=== PATIENT | male | born 1985 | race Caucasian/White ===

== ENCOUNTER 2022-11-23 23:24 | Emergency (ER) | payer BC, SELFPAY ==
[2022-11-23 23:27] VITALS: BP 135/81; PULSE 80; RESP 16; TEMP 36.9; O2SAT 100; BMI 30.6
--- NOTE | 2022-11-23 23:40 | ED.EAR1 ---
HPI - Ear Problem General Chief complaint: Ear Stated complaint: bug in L ear Time Seen by Provider: 11/23/22 23:40 History of Present Illness HPI Narrative: This 37-year-old male presents for evaluation of a foreign body/insect in his left ear. The patient was sitting outside with a light near him and an insect flew into his left ear. He can feel it moving in his left ear. His tried to remove it with tweezers but was unable to get it. He has been hitting the side of his head and it does not come out.No additional injuries or complaints. Related Data Allergies Allergy/AdvReac Type Severity Reaction Status Date / Time No Known Drug Allergies Allergy Verified 11/23/22 23:30 Review of Systems ROS Status of ROS 10 or more systems reviewed and unremarkable except as noted in history and below PFSH PFS Social History Smoking status: Never smoker Exam Narrative Exam Narrative: Nurses note and vital signs reviewed and patient is not hypoxic. General: The patient appears well but anxious due to a foreign body in his left ear Skin: Warm, dry, no pallor noted. There is no rash noted. Head: Normocephalic, atraumatic Eye: Normal conjunctiva, no drainage, EOMI. PERRL HEENT: There is a visible insect in the left external ear canal Neurological: A&O x4, normal speech Psychiatric: Cooperative Constitutional Vital Signs, click to edit/add: Last Vital Signs Temp 98.4 F 11/23/22 23:27 Pulse 80 11/23/22 23:27 Resp 16 11/23/22 23:27 BP 135/81 H 11/23/22 23:27 Pulse Ox 100 11/23/22 23:27 Course Vital Signs Vital signs: Vital Signs Temperature 98.4 F 11/23/22 23:27 Pulse Rate 80 11/23/22 23:27 Respiratory Rate 16 11/23/22 23:27 Blood Pressure 135/81 H 11/23/22 23:27 Pulse Oximetry 100 11/23/22 23:27 Temperature 98.4 F 11/23/22 23:27 Pulse Rate 80 11/23/22 23:27 Respiratory Rate 16 11/23/22 23:27 Blood Pressure 135/81 H 11/23/22 23:27 Pulse Oximetry 100 11/23/22 23:27 Medical Decision Making MDM Narrative Medical decision making narrative: Procedure note: Foreign body removal left ear. A suction catheter was used to remove the Moth that was in the left ear, The ear was reevaluated. There is a small area of excoriation on the medial aspect of the external ear canal. There is no tympanic membrane perforation. Small to moderate amount of cerumen is noted in the external ear canal This 37-year-old male presents for evaluation of a foreign body/insect in his left ear canal. I removed it in toto with suction. There is an excoriated area in the external ear canal but no tympanic membrane perforation. Cortisporin otic was ordered to treat the excoriated area in the ear canal and then an otitis externa. This will be dispensed to him to use 3-4 times a day for the next 3-4 days. Discharge Plan Discharge Chief Complaint: Ear Clinical Impression: Foreign body of ear, left Patient Disposition: Home, Self-Care Time of Disposition Decision: 23:41 Condition: Good Additional Instructions: Use two to 3 drops of the antibiotic suspension into the left ear 3-4 times a day for the next 3-4 days. Return to emergency department for ear pain, drainage or any concerns. Stand Alone Forms: Portal Instructions
--- NOTE | 2022-11-23 23:42 | PC.NURSE ---
Pt has bug in left ear, pt's attempted to get out at home but unable to.
[2022-11-23] MEDS: NEOMYCIN/POLYMYXIN B/HYDROCORTISONE OTIC SOLUTION 200 DROP/10 ML BOTTLE OT (23:52)
== END 2022-11-23 23:54 | disposition home or self-care (01) ==
PROVIDERS: Emergency Provider Emergency Medicine; PCP Internal Medicine
DX: T16.2XXA Foreign body in left ear, initial encounter (principal)
CPT/HCPCS: 69200; 99282

== ENCOUNTER 2023-02-28 10:49 | Outpatient (OUT) | payer BC, SELFPAY ==
--- NOTE | 2023-02-28 10:52 | XR_ITS ---
The [address] [address] Patient Name: IAN YEPEZ MRN: [id number] date: 1985 Sex: M Assigned Patient Location: RAD Current Patient Location: RAD Accession/Order Number: [id number] Exam Date: 02/28/2023 11:00 Report Date: 02/28/2023 14:29 At the request of: KELLY WESLEY Procedure: XR knee RT 4V EXAM: XR knee RT 4V HISTORY: Acute Pain M25.561 COMPARISON: There is no appropriate prior study for comparison. The alignment is anatomical. There is no acute fracture or dislocation. The interarticular joint spaces are preserved. Mild fluid within the suprapatellar bursa. No other significant soft tissue abnormality is noted. XR/XR knee RT 4V IMPRESSION: Mild fluid within the right suprapatellar bursa. Otherwise, no significant abnormality current x-ray of the right knee. Electronically authenticated by: YASMANI DUARTE Date: 02/28/2023 14:29
== END 2023-02-28 10:50 | disposition home or self-care (01) ==
LOC: RAD 10:49
PROVIDERS: PCP Internal Medicine; Visit Provider Orthopaedic Surgery
DX: M25.561 Pain in right knee (principal); M25.461 Effusion, right knee
CPT/HCPCS: 73564

== ENCOUNTER 2023-03-02 06:39 | Outpatient (OUT) | payer BC, SELFPAY ==
--- NOTE | 2023-03-02 06:49 | MR_ITS ---
[address] [address] Patient Name: IAN YEPEZ MRN: [id number] date: 1985 Sex: M Assigned Patient Location: MRI Current Patient Location: MRI Accession/Order Number: [id number] Exam Date: 03/02/2023 06:52 Report Date: 03/02/2023 07:36 At the request of: KELLY WESLEY Procedure: MR knee RT wo con EXAM: MR knee RT wo con HISTORY: acute pain of right knee COMPARISON: Right knee x-rays 02/28/2023. TECHNIQUE: Multi planar, multisequence MR imaging of the right knee without contrast. Findings: Menisci: The menisci are intact. Cruciate ligaments: The anterior and posterior cruciate ligaments are intact. Collateral ligaments: The medial collateral ligament and lateral collateral complex are intact. Patellofemoral: The extensor mechanism is intact. Small joint effusion. Grade 1 patellofemoral compartment chondromalacia. No full-thickness cartilage defect. Other bones and cartilage: No acute fracture or malalignment. No focal bone marrow edema. Grade 1 femoral tibial compartment chondromalacia. No full-thickness cartilage defects. Miscellaneous: No Terrell's cyst. MR/MR knee RT wo con IMPRESSION: 1. Small joint effusion. 2. No evidence of internal derangement. Electronically authenticated by: CHANTAL CAPUTO Date: 03/02/2023 07:36
== END 2023-03-02 06:40 | disposition home or self-care (01) ==
LOC: MRI 06:39
PROVIDERS: PCP Internal Medicine; Visit Provider Orthopaedic Surgery
DX: M25.561 Pain in right knee (principal); M25.461 Effusion, right knee; I10 Essential (primary) hypertension
CPT/HCPCS: 73721

== ENCOUNTER 2024-08-02 20:06 | Emergency (ER) | payer OTHER, SELFPAY ==
[2024-08-02 20:10] VITALS: BP 130/91; PULSE 84; TEMP 36.8; O2SAT 98; BMI 28.2
--- NOTE | 2024-08-02 20:25 | ED.GENADUL1 ---
HPI HPI - General Adult General Chief complaint: Head Injury Stated complaint: Head Injury Time Seen by Provider: 08/02/24 20:13 Source: patient Mode of arrival: walk-in Limitations: no limitations History of Present Illness HPI narrative: 38-year-old male who reports to the emergency department with complaints of a fence post hitting him on his nose, and now having a headache. He reports this happened just before arrival. He reports he was trying to fix the post as he was lifting and pushing on the post, and swung back, and hit him in the nose. Reports no loss conscious. Denies any episodes of vomiting. He reports little bit of headache that radiates to the right side of his head. He denies any vision changes. He states has not taken medications 1 to get checked out. Reports he is up-to-date on his vaccines for tetanus shots. Denies any blood thinners. Related Data Home Medications ?Medication ?Instructions ?Recorded ?Confirmed albuterol sulfate 90 mcg/actuation inhalation 08/02/24 aerosol inhaler dextroamphetamine-amphetamine 15 08/02/24 mg tablet escitalopram oxalate 10 mg tablet mg 08/02/24 lisdexamfetamine 70 mg capsule mg 08/02/24 (Vyvanse) Allergies Allergy/AdvReac Type Severity Reaction Status Date / Time No Known Drug Allergies Allergy Verified 08/02/24 20:10 Opioid HPI Opioid Management Most Recent Opioid Data: Last Pain Scale 5 08/02/24 20:33 08/02/24 Review of Systems ROS Status of ROS 10 or more systems reviewed and unremarkable except as noted in history and below PFSH PFS Social History Smoking status: Never smoker Little interest or pleasure in doing things: not at all Feeling down, depressed, or hopeless: not at all Exam Narrative Exam Narrative: General: resting comfortable in the bed. no acute distress. Skin: No pallor, skin dry. Small abrasion located on the bridge of nose. No active bleeding. Head: Normocephalic, atraumatic Neck: No JVD. No cervical spine tenderness. Eyes: PERRLA, EOMI ENT: Moist mucous membranes Cardiac: Regular rate. Radial pulses +2 bilaterally Respiratory: No respiratory distress. No audible wheeze. GI: No obvious distention Extremities: Moves all limbs with equal strength without pain. Neuro: AxOx4. No focal neurological deficits. No focal neurological deficits. Psychiatric: Appropriate and cooperative Constitutional Vital Signs, click to edit/add: Last Vital Signs Temp 98.2 F 08/02/24 20:10 Pulse 84 08/02/24 20:10 Resp 16 08/02/24 20:10 BP 130/91 08/02/24 20:10 Pulse Ox 98 08/02/24 20:10 O2 Del Method Room Air 08/02/24 20:10 Course Vital Signs Vital signs: Vital Signs Temperature 98.2 F 08/02/24 20:10 Pulse Rate 84 08/02/24 20:10 Respiratory Rate 16 08/02/24 20:10 Blood Pressure 130/91 08/02/24 20:10 Pulse Oximetry 98 08/02/24 20:10 Oxygen Delivery Method Room Air 08/02/24 20:10 Temperature 98.2 F 08/02/24 20:10 Pulse Rate 84 08/02/24 20:10 Respiratory Rate 16 08/02/24 20:10 Blood Pressure 130/91 08/02/24 20:10 Pulse Oximetry 98 08/02/24 20:10 Oxygen Delivery Method Room Air 08/02/24 20:10 Medical Decision Making MDM Narrative Medical decision making narrative: A 38-year-old male reports emergency department with a closed head injury. He reports that he was helping push his fence back up, and the wind pushed and slammed down onto his face. He reports no loss of consciousness. No nausea or vomiting. He reports small abrasion on his nose as well as a mild headache. Exam patient here is benign for any neurological symptoms. He denies any episodes of vomiting. I did do [place] head CT score, and there was no need for any observation or head CT at this time. I did offer to do a head CT on the patient, he stated that he felt okay and declined at this time. Discussed likely mild concussion as well. He is up-to-date on his tetanus vaccine. Discussed supportive treatments. Discussed return precautions. Follow-up with your primary care provider in 1 to 3 days. If symptoms worsen, do not improve, or new symptoms arise you may report back to emergency department for further evaluation. Discharge Plan Discharge Chief Complaint: Head Injury Clinical Impression: Concussion without loss of consciousness, Abrasion of nose Patient Disposition: Home, Self-Care Time of Disposition Decision: 20:30 Condition: Good Prescriptions / Home Meds: No Action dextroamphetamine-amphetamine 15 mg tablet albuterol sulfate 90 mcg/actuation HFA aerosol inhaler INHALATION escitalopram oxalate 10 mg tablet lisdexamfetamine [Vyvanse] 70 mg capsule Print Language: Green[place]ic Instructions: Concussion (ED), Abrasion (ED), Post Concussion Syndrome (ED) Referrals: Marvin Patino DO [Primary Care Provider] - 1 week
--- OUTSIDE RECORDS SUMMARY | 2024-08-02 20:38 | XMS_ITS | CCD ---
Author Organization [facility] CliniSyil Care Team Providers Care Cell Attendant Helper Name Role Phone Marvin Blanca Unavailable DR MARVIN BLANCA Admitting Unavailable RIANNA, DR MARIE Primary Care Unavailable RIANNA, DR MARIE Attending Unavailable RIANNA, DR MARIE Admitting Unavailable RIANNA, DR MARIE Primary Care Unavailable RIANNA, DR MARIE Consulting Unavailable RIANNA, DR MARIE Attending Unavailable Vibha Mayfield Unavailable Allergies Allergy Classification Reported Allergen(s) Allergy Type Date of Onset Reaction(s) Facility (1 source) No Known Medication Allergies; Translations: [No Known Medication Allergies] Propensity to adverse reactions (disorder) [facility] Repository (3 sources) patient allergy list reviewed by nurse or physicia Propensity to adverse reactions Comment:Done [facility] Other (3 sources) Allergies Reconciled Propensity to adverse reactions Unknown [facility] Other Medications Current Medications Medication Drug Class(es) Dates Sig (Normalized) Sig (Original) [id number] 200 actuat albuterol 0.09 mg/actuat metered dose inhaler (17 sources) beta2-Adrenergic Agonist Start: 08-17-2023 take 1 puff(s) by inhalation every four hours Albuterol Sulfate Active 2 PUFF INHALATION Every 4 hours August 17, 2023 12:00am take 2 puff(s) by in halation every four hours as needed for cough Albuterol Sulfate HFA 108 (90 Base) MCG/ACT 2 puffs Inhalation every 4 hrs as needed for cough and SOB for 30 days Active take 2 puff(s) by in halation every four hours as needed for cough Albuterol Sulfate HFA 108 (90 Base) MCG/ACT 2 puffs Inhalation every 4 hrs as needed for cough and SOB for 30 days Active take 1 puff(s) by in halation every four hours as needed Albuterol Sulfate HFA 108 (90 Base) MCG/ACT 1 puff as needed Inhalation every 4 hrs Active take 1 puff(s) by in halation every four hours as needed Albuterol Sulfate HFA 108 (90 Base) MCG/ACT 1 puff as needed Inhalation every 4 hrs Active 24 hr amphetamine aspartate 5 mg / amphetamine sulfate 5 mg / dextroamphetamine saccharate 5 mg / dextroamphetamine sulfate 5 mg extended release oral capsule (20 sources) Central Nervous System Stimulant Start: 08-17-2023 take 20 mg by mouth once daily Dextroamphetamine-Amphetamine Active 20 MG PO Daily August 17, 2023 12:00am Start: 07-15-2023 End: 08-15-2023 take 15 mg by mouth twice daily Dextroamphetamine-Amphetamine Active 15 MG PO Twice daily 60 30 August 15, 2023 start 08/14 Start: 06-17-2023 take 1 tablet by cristina th every twelve hours Adderall 15 MG 1 tablet Orally Twice a d ay for 30 days p/u 2/, start 06/18Jun, Active Start: 05-17-2023 take 1 tablet by cristina th every twelve hours Adderall 15 MG 1 tablet Orally Twice a d ay for 30 days p/u /, start 05/19May, Active Start: 04-17-2023 take 1 tablet by cristina th every twelve hours Adderall 10 MG 1 tablet Orally Twice a d ay for 30 days p/u 04/17, start 04/19Apr, Active Start: 03-18-2023 take 1 tablet by cristina th every twelve hours Adderall 10 MG 1 tablet Orally Twice a d ay for 30 days p/u 03/18, start 03/20Mar, Active Start: 02-16-2023 take 1 tablet by cristina th every twelve hours Adderall 10 MG 1 tablet Orally Twice a d ay for 30 days p/u 02/16 start 02/18Feb, Active Start: 01-19-2023 take 1 tablet by cristina th every twelve hours Adderall 10 MG 1 tablet Orally Twice a d ay for 30 days Jan, Active Start: 12-20-2022 take 1 tablet by cristina th every twelve hours Adderall 10 MG 1 tablet Orally Twice a d ay for 30 days Dec, Active Start: 11-17-2022 take 1 tablet by cristina th every twelve hours Adderall 10 MG 1 tablet Orally Twice a d ay for 30 days Nov, Active Start: 10-21-2022 take 1 tablet by cristina th every twelve hours Adderall 10 MG 1 tablet Orally Twice a d ay for 30 days Oct, Active Start: 10-18-2022 take 1 tablet by cristina th every twelve hours Adderall 10 MG 1 tablet Orally Twice a d ay for 30 days Oct, Active Start: 09-16-2022 take 1 tablet by cristina th every twelve hours Adderall 10 MG 1 tablet Orally Twice a d ay for 30 days September, Active Start: 08-17-2022 take 1 tablet by cristina th every twelve hours Adderall 10 MG 1 tablet Orally Twice a d ay for 30 days Aug, Active Start: 08-06-2022 take 1 capsule by mo [facility] every twenty-four hours Amphetamine-Dextroamphet ER 20 MG 1 caps ule Orally Once a day potato picker 07/04/22 Jul, Not-Taking/PRN etodolac 500 mg oral tablet (7 sources) Nonsteroidal Anti-inflammatory Drug Start: 08-17-2023 take 500 mg by mouth twice daily Etodolac Active 500 MG PO Twice daily August 17, 2023 12:00am Start: 02-16-2023 take 1 tablet by cristina th every twelve hours Etodolac 500 MG 1 tablet with food Orally Twice a day for 30 days Feb, Active Completed/Discontinued Medications Medication Drug Class(es) Dates Sig (Normalized) Sig (Original) cefdinir 300 mg oral capsule (11 sources) Cephalosporin Antibacterial Start: 10-27-2022 take 1 capsule by mouth every twelve hours Cefdinir 300 MG 1 Capsule Orally bid for 10 days Oct, Not-Taking/PRN Problems Active Problems Problem Classification Problem Date Documented Date Episodic/Chronic Asthma (20 sources) Uncomplicated mild persistent asthma; Translations: [Mild persistent asthma, uncomplicated] Onset: 05-03-2017 Resolved: 07-28-2020 Chronic Attention-deficit, conduct, and disruptive behavior disorders (20 sources) Attention deficit hyperactivity disorder, predominantly inattentive type; Translations: [Attention-deficit hyperactivity disorder, predominantly inattentive type] 08-17-2023 Chronic Attention-deficit, conduct, and disruptive behavior disorders (14 sources) Attention-deficit hyperactivity disorder, predominantly inattentive type Chronic Disorders usually diagnosed in infancy, childhood, or adolescence (1 source) Other specified behavioral and emotional disorders with onset usually occurring in childhood and adolescence; Translations: [Attention deficit disorder without mention of hyperactivity] 08-19-2023 Chronic Other aftercare (3 sources) Long-term current use of inhaled steroid; Translations: [[employer]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] Episodic Other nutritional; endocrine; and metabolic disorders (17 sources) Body mass index 30+ - obesity; Translations: [Obesity, unspecified] 08-17-2023 Chronic Other nutritional; endocrine; and metabolic disorders (1 source) Obesity, unspecified Chronic Other nutritional; endocrine; and metabolic disorders (3 sources) Simple obesity ; Translations: [Other obesity due to excess calories] Onset: 04-01-2017 Chronic Other nutritional; endocrine; and metabolic disorders (3 sources) Obese class I; Translations: [Body mass index 32.0-32.9, adult] Onset: 04-01-2017 Chronic Other skin disorders (3 sources) Hair follicle disorder; Translations: [Other specified follicular disorders] Episodic Other upper respiratory disease (3 sources) Allergic rhinitis; Translations: [Allergic rhinitis, unspecified] Chronic Other upper respiratory infections (5 sources) Acute pharyngitis, unspecified; Translations: [Streptococcal pharyngitis] Episodic Sprains and strains (3 sources) Strain of unspecified muscle(s) and tendon(s) at lower leg level, right leg, initial encounter; Translations: [Sprain of right knee] Episodic Unclassified (3 sources) Other eosinophilia; Translations: [Other eosinophilia] Viral infection (1 source) COVID-19; Translations: [COVID-19] Onset: 10-07-2021 Past or Other Problems Problem Classification Problem Date Documented Date Episodic/Chronic Abdominal pain (3 sources) Right upper quadrant pain; Translations: [Right upper quadrant pain] Onset: 07-21-2015 Episodic Acute bronchitis (3 sources) Acute bronchitis; Translations: [Acute bronchitis, unspecified] Onset: 03-06-2014 Episodic Biliary tract disease (3 sources) Disorder of gallbladder; Translations: [Other specified diseases of gallbladder] Onset: 08-11-2015 Episodic Immunizations and screening for infectious disease (4 sources) Encounter for immunization; Translations: [ENCOUNTER FOR IMMUNIZATION] Onset: 10-06-2021 Episodic Nausea and vomiting (3 sources) Nausea and vomiting; Translations: [Nausea with vomiting, unspecified] Onset: 01-22-2015 Episodic Noninfectious gastroenteritis (3 sources) Non-infective enteritis and colitis; Translations: [Noninfective gastroenteritis and colitis, unspecified] Onset: 01-22-2015 Episodic Other nutritional; endocrine; and metabolic disorders (3 sources) Obesity; Translations: [Obesity, unspecified] Onset: 11-05-2020 Resolved: 02-08-2022 Chronic Other upper respiratory infections (3 sources) Chronic sinusitis; Translations: [Chronic sinusitis, unspecified] Resolved: 02-08-2022 Chronic Screening and history of mental health and substance abuse codes (3 sources) History of tobacco use; Translations: [Personal history of tobacco use, presenting hazards to health] Onset: 04-01-2017 Episodic Superficial injury; contusion (6 sources) Abrasion and/or friction burn of hand, infected; Translations: [Hand(s) except finger(s) alone, abrasion or friction burn, infected] Onset: 11-05-2013 Episodic Syncope (3 sources) Syncope and collapse; Translations: [Syncope and collapse] Onset: 04-01-2017 Episodic Results Test Name Value Interpretation Reference Range Facil ity Quick Strepon 10-27-2022 Quick Strep [facility] Other Longterm Documentson 03-04-2022 Longterm Documents [id number]:127 Normal [facility] Aerobic Cultureon 11-14-2020 Aerobic Culture LEFT LATERAL SUBMANDIBULAR CHEEK AND NECK Light Normal Skin Zule[place]ka 2 Days LEFT LATERAL SUBMANDIBULAR CHEEK AND NECK No Anaerobes Isolated 3 Days LEFT LATERAL SUBMANDIBULAR CHEEK AND NECK Gram Stain Result Rare Gram Positive Cocci Rare White Blood Cells PERFORMED BY: [facility] [address] [place] [address] PATHOLOGIST ANIMAL EVISCERATOR NAV BARLOW M.D. [facility] Comment on above: Performed By: #### A ERC #### [facility] [address] [id number] [facility] Superficial Wound Cultureon 08-05-2020 Superficial Wound Culture LT MEDIAL SUBMANDIBULAR CHEEK AND FACE BACTERIA SKIN AEROBE CULT Light Normal Skin Zule[place]ka 2 Days PERFORMED BY: [facility] [address] [id number] PATHOLOGIST ANIMAL EVISCERATOR NAV BARLOW M.D. [facility] Comment on above: Performed By: #### C USUP #### [facility] [address] [id number] [facility] Vital Signs Date Time Vital Sign Value Performing Clinician Facility 08-19-2023 08:29-0400 Body height 167.64 cm [facility] 08-19-2023 08:29-0400 Body mass index (BMI) [Ratio] 31.6 kg/m2 [facility] 08-19-2023 08:29-0400 Body weight 89.07 kg [facility] 08-19-2023 08:29-0400 Diastolic blood pressure 75 mm[Hg] [facility] 08-19-2023 08:29-0400 Heart rate 90 /min [facility] 08-19-2023 08:29-0400 Respiratory rate 12 /min [facility] 08-19-2023 08:29-0400 Systolic blood pressure 109 mm[Hg] [facility] 02-16-2023 13:45-0400 Body height 167.64 cm Marvin Ball Other [facility] [employer] Other 02-16-2023 13:45-0400 Body mass index (BMI) [Ratio] 30.15 kg/m2 Marvin Ball Other [facility] [employer] Other 02-16-2023 13:45-0400 Body weight 84.73 kg Marvin Ball Other [employer] [facility] [employer] Other 02-16-2023 13:45-0400 Diastolic blood pressure 72 mm[Hg] Marvin Ball Other [employer] [facility] [employer] Other 02-16-2023 13:45-0400 Respiratory rate 12 /min Marvin Ball Other [facility] Other 02-16-2023 13:45-0400 Systolic blood pressure 110 mm[Hg] Marvin Ball Other [facility] Other 10-27-2022 11:30-0400 Body height 167.64 cm Vibha Mayfield Other [facility] Other 10-27-2022 11:30-0400 Body mass index (BMI) [Ratio] 31.47 kg/m2 Vibha Mayfield Other [facility] Other 10-27-2022 11:30-0400 Body weight 88.45 kg Vibha Mayfield Other [facility] Other 10-27-2022 11:30-0400 Diastolic blood pressure 72 mm[Hg] Vibha Mayfield Other [facility] Other 10-27-2022 11:30-0400 Systolic blood pressure 110 mm[Hg] Vibha Mayfield Other [facility] Other 08-10-2022 15:30-0400 Body height 167.64 cm Marvin Ball Other [facility] Other 08-10-2022 15:30-0400 Body mass index (BMI) [Ratio] 32.54 kg/m2 Marvin Ball Other [facility] Other 08-10-2022 15:30-0400 Body weight 91.45 kg Marvin Ball Other [facility] Other 08-10-2022 15:30-0400 Diastolic blood pressure 82 mm[Hg] Marvin Blanca Other [facility] Other 08-10-2022 15:30-0400 Respiratory rate 12 /min Marvin Blanca Other [facility] Other 08-10-2022 15:30-0400 Systolic blood pressure 130 mm[Hg] Marvin Blanca Other [facility] Other Encounters Encounter Date Encounter Type Care Provider Facility Start: 08-19-2023 End: 08-19-2023 ambulatory [facility] Work Phone: Start: 08-19-2023 End: 08-19-2023 Encounter for general adult medical examination without abnormal findings [facility] Start: 08-19-2023 End: 08-19-2023 Patient encounter procedure [facility] Work Phone: Start: 07-15-2023 Non-patient / Non-visit [facility] [employer] Work Phone: Start: 06-17-2023 End: 06-17-2023 ambulatory Marvin Blanca Other [facility] Other Start: 06-17-2023 Encounter by [email or web address] Marvin Blanca [facility] Start: 05-17-2023 End: 05-17-2023 ambulatory Marvin Blanca Other [facility] Other Start: 05-17-2023 Telephone encounter Marvin Blanca [facility] Start: 05-16-2023 End: 05-16-2023 ambulatory Marvin Rianna Other [facility] Other Start: 05-16-2023 Encounter by [email or web address] Marvin Blanca [facility] Start: 04-14-2023 End: 04-14-2023 ambulatory Marvin Blanca Other [facility] Other Start: 04-14-2023 Encounter by [employer] Marvin Blanca [facility] Start: 03-18-2023 End: 03-18-2023 ambulatory Marvin Blanca Other [facility] Other Start: 03-18-2023 Encounter by [employer] Marvin Blanca [facility] Start: 02-16-2023 End: 02-16-2023 ambulatory Marvin Blanca Other [facility] Other Start: 02-16-2023 Office outpatient vi sit 15 minutes Marvin Ball [facility] Start: 01-19-2023 End: 01-19-2023 ambulatory Marvin Rianna Other [facility] Other Start: 01-19-2023 Telephone encounter Marvin Blanca [facility] Start: 12-20-2022 End: 12-20-2022 ambulatory Marvin Blanca Other [facility] Other Start: 12-20-2022 Telephone encounter Marvin Rianna [facility] Start: 11-17-2022 End: 11-17-2022 ambulatory Marvin Rianna Other [facility] Other Start: 11-17-2022 Telephone encounter Marvin Ball [facility] Start: 10-27-2022 End: 10-27-2022 ambulatory Vibha Mayfield Other [facility] Other Start: 10-27-2022 Office outpatient vi sit 15 minutes Vibha Mayfield [facility] Start: 10-18-2022 End: 10-18-2022 ambulatory Marvin Rianna Other [facility] Other Start: 10-18-2022 Telephone encounter Marvin Ball [facility] Start: 09-16-2022 End: 09-16-2022 ambulatory Marvin Ball Other [facility] Other Start: 09-16-2022 Telephone encounter [facility] Start: 08-20-[address] MARVIN BLANCA Facili ty:[facility] Start: 08-17-2022 End: 08-17-2022 ambulatory Marvin Rianna Other [facility] Other Start: 08-17-2022 Telephone encounter [facility] Start: 08-16-2022 End: 08-16-2022 ambulatory Marvin Blanca Other [facility] Other Start: 08-16-2022 Telephone encounter Marvin LYNN [facility] Start: 08-10-2022 End: 08-10-2022 ambulatory Marvin Blanca Other [facility] Other Start: 08-10-2022 Encounter for genera l adult medical examination without abnormal findings Marvin Blanca [facility] Start: 08-10-2022 Periodic preventive med est patient 18-39 yrs Marvin Blanca [facility] Start: 10-06-2021 End: 10-06-[address] MARVIN BLANCA Facility:[facility] Start: 09-13-2021 ambulatory Facility:[facility] Plan of Treatment Date Care Activity Detail Author Comprehensive metabo lic 1999 panel - Serum or Plasma [facility] Payers Date Payer Category Payer Unknown [id number] 1985 Unknown [id number] 1985 Unknown [id number] 1985 Unknown [id number] 1959 [facility] [id number] 1959 Self-pay Private Health Insurance [employer] [id number] Unknown [place] [id number] Social History Date Type Detail Facility Sex Assigned At [facility] Other Start: 1985 Sex Assigned At Male F [facility] Clinical Notes 08-10-2022 to 06-17-2023 Note Date & Type Note Facility 06-17-2023 Evaluation note Encounter Date Diagnosis Assessment Notes Jun, Attention deficit hyperactivity disorder (ADHD), predominantly inattentive type (ICD-10 - F90.0) [facility] Other 01-02-2024 Evaluation note* Encounter Date Diagnosis Assessment Notes Treatment Notes Treatment Clinical Notes May, Attention deficit hyperactivity disorder (ADHD), predominantly inattentive type (ICD-10 - F90.0) [facility] Other 01-01-2024 Evaluation note* Encounter Date Diagnosis Assessment Notes Treatment Notes Treatment Clinical Notes May, ADHD, predominantly inattentive type (ICD-10 - F90.0) [facility] Other 11-30-2023 Evaluation note* Encounter Date Diagnosis Assessment Notes Treatment Notes Treatment Clinical Notes Mar, ADHD, predominantly inattentive type (ICD-10 - F90.0) Mar, Mild persistent asthma without complication (ICD-10 - J45.30) [facility] Other 11-03-2023 Evaluation note* Encounter Date Diagnosis Assessment Notes Treatment Notes Treatment Clinical Notes Mar, ADHD, predominantly inattentive type (ICD-10 - F90.0) [facility] Other 10-04-2023 Evaluation note* Encounter Date Diagnosis Assessment Notes Treatment Notes Treatment Clinical Notes Feb, Strain of right knee, initial encounter (ICD-10 - S86.911A) Quad exercises, ice/heat and Tylenol. Bracing or merly wrap for support. Avoid squatting or kneeling. Likely medial meniscal tear, MCL strain. Refer to Orthopedics to expedite care [facility] Other 09-06-2023 Evaluation note* Encounter Date Diagnosis Assessment Notes Treatment Notes Treatment Clinical Notes Jan, ADHD, predominantly inattentive type (ICD-10 - F90.0) [facility] Other 08-07-2023 Evaluation note* Encounter Date Diagnosis Assessment Notes Treatment Notes Treatment Clinical Notes Dec, ADHD, predominantly inattentive type (ICD-10 - F90.0) [facility] Other 07-05-2023 Evaluation note* Encounter Date Diagnosis Assessment Notes Treatment Notes Treatment Clinical Notes Nov, ADHD, predominantly inattentive type (ICD-10 - F90.0) [facility] Other 06-14-2023 Evaluation note* Encounter Date Diagnosis Assessment Notes Treatment Notes Treatment Clinical Notes Oct, Sore throat (ICD-10 - J02.9) Oct, Strep pharyngitis (ICD-10 - J02.0) His strep test was negative, but with the positve exsposure and examination of the throat with palatal petchiae, tonsilar exudates and cervcial lymphadenopthy will treat for strep throat. Take antibiotic as directed, complete entire course even if feeling better. Contagious for 24 hours after starting antibiotic. Discussed good hand hygiene and infection control. New tooth brush and wash linens after 2-3 days of being on antibiotic to prevent reinfection. Supportive care as directed. Push fluids and rest. Eat soft foods and liquids that are easy to swallow. Tylenol/Motrin as needed for fever or discomfort. Use of throat lozenges and warm salt water gargles encouraged. Symptoms should improve in the next 24-48 hours, eval if symptoms have not improved with treatment. Immediate eval if difficultly managing oral secretions, drooling, unilateral neck swelling, hot potato voice, persistent fever, neck pain/stiffness, severe headache, lethargy. Patient verbalizes understanding and is agreeable to treatment plan. [facility] Other 06-05-2023 Evaluation note* Encounter Date Diagnosis Assessment Notes Treatment Notes Treatment Clinical Notes Oct, ADHD, predominantly inattentive type (ICD-10 - F90.0) [facility] Other 05-04-2023 Evaluation note* Encounter Date Diagnosis Assessment Notes Treatment Notes Treatment Clinical Notes September, ADHD, predominantly inattentive type (ICD-10 - F90.0) [facility] Other 04-04-2023 Evaluation note* Encounter Date Diagnosis Assessment Notes Treatment Notes Treatment Clinical Notes Aug, ADHD, predominantly inattentive type (ICD-10 - F90.0) [facility] Other 04-03-2023 Evaluation note* Encounter Date Diagnosis Assessment Notes Treatment Notes Treatment Clinical Notes Aug, Attention deficit hyperactivity disorder (ADHD), predominantly inattentive type (ICD-10 - F90.0) [facility] Other 03-28-2023 Evaluation note* Encounter Date Diagnosis Assessment Notes Treatment Notes Treatment Clinical Notes Jul, Wellness examination (ICD-10 - Z00.00) Healthy diet and exercise. Reviewed age-appropriate preventive testing recommended. Jul, Attention deficit hyperactivity disorder (ADHD), predominantly inattentive type (ICD-10 - F90.0) Tolerating medication, difficulty to get medication due to shortage Jul, Mild persistent asthma without complication (ICD-10 - J45.30) No ER/hosp visits for acute exacerbation. He uses PHILL as needed, symptoms worse in cold air. Some mild seasonal exacerbation Jul, Obesity (BMI 30-39.9) (ICD-10 - E66.9) This patient has been instructed on a low-fat, high-fiber diet. They are instructed to reduce calories, portion sizes and snacks. It is recommended that they exercise for 30 minutes, 3-5 times weekly. [facility] Other Evaluation note* Diagnosis Onset Date Resolution Status ADD (attention deficit disorder) acute Mild persistent asthma without complication acute Sprain of right knee acute Wellness examination noneact [facility] Work Phone: History general Narrative - Reported* Type Description Date Medical History ADHD, predominantly inattentive type Medical History Attention deficit hy peractivity disorder (ADHD), predominantly inattentive type Medical History Mild persistent asthma without c omplication Surgical History LAP CHOLECYSTECTOMY 2016 Hospitalization History SEE SURGICAL HX [facility] Other Reason for referral (narrative)* Reason Referral for right k nee pain Diagnosis 1 Strain of right knee , initial encounter (S89.662H) Referral Organization [facility] Rianna fuller Referring Provider First Name Marvin Referring Provider Last Name Rianna Referring Provider Specialty Internal Me dicine Referred Organization [facility] Referred Provider Cezar Kessler Referred Address [address] [place], [place],[address] Referred Provider Specialty Orthopaedic Surgery Referral Priority Routine General Notes 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 He was lifting and moving a gate, when he immediately felt a sharp pain in his right knee. This was followed by mild swelling w/o bruising or erythema. Since then, he has experienced some locking and giving away during activity. He has restricted motion and pain during examination. He is being referred to orthopedic surgery for evaluation and treatment [facility] Other Summary Purpose Family History Relationship Condition Age at Onset Recorded Date/T sugar Not Specified Family history of mental disorder Unknow n Advance Directives Advance Directive Response Recorded Date/ Time Advance Directives No August 07, 021 7:19pm Chief Complaint and Reason for Visit Chief Complaint Amb Documentation Wellness Reason for Visit ADD (attention defic it disorder) Mild persistent asthma without complication Sprain of right knee Wellness examination Additional Source Comments (unrecognized sect ion and content) No Status Records FoundNo Status Records FoundNo Status Records Found INFORMATION SOURCE (unrecogn ized section and content) DATE CREATED AUTHOR 05/24/2021 [facility] DATE CREATED AUTHOR AUTHOR'S ORGANIZ ATION 03/08/2022 [facility] DATE CREATED AUTHOR AUTHOR'S ORGANIZ ATION 08/21/2022 [facility] REASON FOR VISIT (unrecogniz ed section and content) wellnessMedicationMedication refillrefillHeadache/Sore ThroatrefillRefillERRORRefillknee painNew Refill RequestNew Refill RequestNo InformationNew Refill RequestNew Refill Request Care Teams (unrecognized sec tion and content) Team Status: Active Member Role Status Dates Marvin Blanca DO Primary Care Provider Active Team Status: Active Member Role Status Dates Marvin Blanca DO Primary Care Provider Active Start: July 15, 2023 DAYTON Espitia Attending Provider Active Start : July 15, 2023 Team Status: Inactive Member Role Status Dates Marvin Blanca , DO Primary Care Provide r, Attending Provider Active Start: August 19, 2023 End: August 19, 2023 Goals (unrecognized section and content) Goals may be documented in a n alternate section FOR RECORDS PERTAINING TO PATIENTS WHO ARE OR HAVE BEEN ENROLLED IN A CHEMICAL DEPENDENCY/SUBSTANCEABUSE PROGRAM, SOME INFORMATION MAY BE OMITTED. This clinical summary was aggregated from multiple sources. Caution should be exercised in using it in the provision of clinical care. This summary normalizes information from multiple sources, and as a consequence, information in this document may materially change the coding, format and clinical context of patient data. In addition, data may be omitted in some cases. CLINICAL DECISIONS SHOULD BE BASED ON THE PRIMARY CLINICAL RECORDS. [employer] provides no warranty or guarantee of the accuracy or completeness of information in this document.
== END 2024-08-02 21:02 | disposition home or self-care (01) ==
PROVIDERS: Emergency Provider Emergency Medicine; PCP Internal Medicine
DX: S06.0X0A Concussion without loss of consciousness, initial encounter (principal); S00.31XA Abrasion of nose, initial encounter; W22.8XXA Striking against or struck by other objects, initial encounter
CPT/HCPCS: 99282